=== PATIENT | female | born 1985 | race Caucasian/White ===

== ENCOUNTER 2022-04-13 07:40 | Inpatient (IN) | payer OTHER ==
[2022-04-13] MEDS ORDERED: ELECTROLYTE-148 SOLN 1,000 ML IV SCH (08:15)
[2022-04-13] MEDS ORDERED: CITRIC ACID/SODIUM CITRATE 30 ML UNIT-DOSE CUP PO ONE (08:15)
[2022-04-13] MEDS ORDERED: morphine SULFATE/PF 1 MG/2 ML (2cc Syringe - QUVA) ONE (08:29)
[2022-04-13] MEDS ORDERED: morphine SULFATE/PF 1 MG/2 ML (2cc Syringe - QUVA) SPIN ONE (09:07)
[2022-04-13] MEDS ORDERED: ceFAZolin SODIUM 1 GM VIAL ONE ×2 (09:23)
[2022-04-13] MEDS ORDERED: ONDANSETRON 4 MG/2 ML VIAL ONE (09:23)
[2022-04-13] MEDS ORDERED: DEXAMETHASONE SOD PHOSPHATE 4 MG/1 ML VIAL ONE (09:23)
[2022-04-13] MEDS ORDERED: BENZOCAINE 28 GM HEMORRHOIDAL OINTMENT TP PRN (09:45)
[2022-04-13] MEDS ORDERED: ACETAMINOPHEN 325 MG TABLET (FP) PO PRN (09:45)
[2022-04-13] MEDS ORDERED: IBUPROFEN 800 MG/8 ML IJ IVPB PRN (09:45)
[2022-04-13] MEDS ORDERED: METHYLERGONOVINE MALEATE 0.2 MG/1 ML AMP IM PRN (09:45)
[2022-04-13] MEDS ORDERED: ONDANSETRON 4 MG/2 ML VIAL IVPUSH PRN (09:58)
[2022-04-13 10:22] VITALS: BMI 32.6
[2022-04-13] MEDS ORDERED: OXYTOCIN 20 UNITS in 0.9% NS 20 UNIT/1,000 ML INFUS.BAG IV ONE (11:54)
[2022-04-13] MEDS: OXYTOCIN 20 UNITS in 0.9% NS 20 UNIT/1,000 ML INFUS.BAG IV SCH ×2 (12:00→21:52)
[2022-04-13] MEDS: FERROUS SO4 325 MG TABLET (FP) PO SCH ×2 (12:07→21:49)
[2022-04-13] MEDS: PRENATAL VITAMINS W/ FOLIC ACID TABLET (FP) PO SCH (12:08)
[2022-04-13] MEDS ORDERED: oxyCODONE HCL 5 MG TABLET PO PRN (21:45)
[2022-04-13] MEDS: SIMETHICONE 80 MG TAB.CHEW (FP) PO PRN (21:49)
[2022-04-14] MEDS: SIMETHICONE 80 MG TAB.CHEW (FP) PO PRN ×2 (05:21→21:42)
[2022-04-14] MEDS: IBUPROFEN 600 MG TABLET (FP) PO PRN ×2 (05:21→14:49)
[2022-04-14 09:42] LABS: BASO % 0.3 % (0-2.0); EOS % 0.9 % (0-4.5); HEMATOCRIT 33.3 % (32.4-45.2); HEMOGLOBIN 11.5 GM/dL (10.7-15.3); LYMPH % 23.6 % (8-40); MCH 29.6 pg (25.7-33.7); MCHC 34.6 g/dl (32.0-36.0); MEAN CELL VOLUME 85.6 fl (80-96); MEAN PLT VOLUME 9.1 fl (7.5-11.1); MONO % 7.7 % (3.8-10.2); NEUT % 67.5 % (42.8-82.8); PLATELET COUNT 221 10^3/uL (134-434); RBC 3.89 M/mm3 (3.60-5.2); RDW 15.1 % (11.6-15.6); WHITE BLOOD COUNT 9.9 K/mm3 (4.0-10.0)
[2022-04-14] MEDS: FERROUS SO4 325 MG TABLET (FP) PO SCH ×2 (09:42→21:43)
[2022-04-14] MEDS: PRENATAL VITAMINS W/ FOLIC ACID TABLET (FP) PO SCH (09:42)
[2022-04-14] MEDS ORDERED: BISACODYL 10 MG SUPP.RECT RC PRN (09:45)
[2022-04-15] MEDS: SIMETHICONE 80 MG TAB.CHEW (FP) PO PRN ×3 (06:08→21:06)
[2022-04-15] MEDS: IBUPROFEN 600 MG TABLET (FP) PO PRN ×3 (06:08→21:06)
[2022-04-15] MEDS: PRENATAL VITAMINS W/ FOLIC ACID TABLET (FP) PO SCH (09:45)
[2022-04-15] MEDS: FERROUS SO4 325 MG TABLET (FP) PO SCH ×2 (09:45→21:06)
[2022-04-15 11:37] VITALS: RESP 18
[2022-04-15 22:17] VITALS: TEMP 98.1
[2022-04-16 09:17] LABS: BASO % 0.4 % (0-2.0); EOS % 4.2 % (0-4.5); LYMPH % 20.3 % (8-40); MCH 29.5 pg (25.7-33.7); MCHC 34.3 g/dl (32.0-36.0); MEAN CELL VOLUME 85.9 fl (80-96); MONO % 6.1 % (3.8-10.2); PLATELET COUNT 241 10^3/uL (134-434); RBC 3.73 M/mm3 (3.60-5.2); RDW 15.3 % (11.6-15.6); WHITE BLOOD COUNT 6.9 K/mm3 (4.0-10.0)
[2022-04-16] MEDS: IBUPROFEN 600 MG TABLET (FP) PO PRN (10:00)
[2022-04-16] MEDS: SIMETHICONE 80 MG TAB.CHEW (FP) PO PRN (10:01)
[2022-04-16] MEDS: PRENATAL VITAMINS W/ FOLIC ACID TABLET (FP) PO SCH (10:01)
[2022-04-16] MEDS: FERROUS SO4 325 MG TABLET (FP) PO SCH (10:01)
[2022-04-16 11:32] VITALS: BP 107/60; PULSE 75
== END 2022-04-16 13:10 | disposition home or self-care (01) | DRG 540 ==
LOC: JLDR 07:40 → J3W 11:55
PROVIDERS: ADMIT Obstetrics & Gynecology; ATTEND Obstetrics & Gynecology
PROC: 10D00Z1 Extraction of Products of Conception, Low, Open Approach (ICD-10-PCS; principal; 2022-04-13)
DX: O34.211 Maternal care for low transverse scar from previous cesarean delivery (principal); Z3A.39 39 weeks gestation of pregnancy; Z37.0 Single live birth; O99.214 Obesity complicating childbirth; E66.9 Obesity, unspecified
CPT/HCPCS: 36415; 80053; 85025; 85610; 86780; 86850; 86900; 86901; 88307-TC; C9803-CS; U0003; U0005

== ENCOUNTER 2024-03-12 09:50 | Inpatient (IN) | payer OTHER ==
[2024-03-12] MEDS: LACTATED RINGERS SOLUTION 1,000 ML IV ONE (10:30)
[2024-03-12 11:43] VITALS: BMI 32.5
[2024-03-12 12:03] LABS: BASO % 0.6 % (0-2.0); EOS % 1.5 % (0-4.5); HEMATOCRIT 36.9 % (32.4-45.2); HEMOGLOBIN 12.8 GM/dL (10.7-15.3); LYMPH % 21.5 % (8-40); MCH 30.1 pg (25.7-33.7); MCHC 34.7 g/dl (32.0-36.0); MEAN CELL VOLUME 86.5 fl (80-96); MEAN PLT VOLUME 10.2 fl (7.5-11.1); MONO % 6.3 % (3.8-10.2); NEUT % 70.1 % (42.8-82.8); PLATELET COUNT 202 10^3/uL (134-434); RBC 4.27 M/mm3 (3.60-5.2); RDW 15.2 % (11.6-15.6); WHITE BLOOD COUNT 8.4 K/mm3 (4.0-10.0)
[2024-03-12 12:11] LABS: INR 0.87 (0.83-1.09)
[2024-03-12] MEDS ORDERED: METOCLOPRAMIDE HCL INJECTION 10 MG/2 ML VIAL ONE (12:12)
[2024-03-12] MEDS ORDERED: PHENYLEPHRINE HCL 10 MG/1 ML SINGLE DOSE VIAL ONE (12:12)
[2024-03-12] MEDS ORDERED: morphine SULFATE/PF 1 MG/2 ML (2cc Syringe - QUVA) ONE (12:12)
[2024-03-12] MEDS ORDERED: ONDANSETRON 4 MG/2 ML VIAL ONE (12:12)
[2024-03-12] MEDS ORDERED: FENTANYL CITRATE/PF 50 MCG/ML VIAL ONE (12:12)
[2024-03-12] MEDS ORDERED: ceFAZolin SODIUM 1 GM VIAL ONE (12:12)
[2024-03-12 12:14] LABS: ACTIVATED PTT 28.9 SECONDS (25.2-36.5)
[2024-03-12 12:29] LABS: POTASSIUM 3.9 mmol/L (3.5-5.1)
[2024-03-12] MEDS: ELECTROLYTE-148 SOLN 1,000 ML IV SCH (12:30)
[2024-03-12 12:31] LABS: BLOOD UREA NITROGEN 13.4 mg/dL (7-18); CALCIUM 8.9 mg/dL (8.5-10.1)
[2024-03-12 12:35] LABS: CREATININE 0.4 mg/dL (0.55-1.3)
[2024-03-12] MEDS ORDERED: OXYTOCIN 30 UNITS in 0.9% NS 30 UNIT/500 ML INFUS.BAG IVPB ONE (12:36)
[2024-03-12] MEDS: CITRIC ACID/SODIUM CITRATE 30 ML UNIT-DOSE CUP PO ONE (12:45)
[2024-03-12 13:41] LABS: CORD BASE EXCESS -2.4 mmol/L (0-2); CORD HCO3 24.6 mmHg (20-29); CORD PCO2 49.9 mmHg (30-78); CORD pH 7.31 (7.14-7.44)
[2024-03-12 13:43] LABS: CORD HCO3 25.1 mmHg (20-29); CORD PCO2 53.2 mmHg (30-78); CORD pH 7.292 (7.14-7.44)
[2024-03-12] MEDS ORDERED: KETOROLAC TROMETHAMINE 30 MG/1 ML VIAL ONE (13:48)
[2024-03-12] MEDS: OXYTOCIN 20 UNITS in 0.9% NS 20 UNIT/1,000 ML INFUS.BAG IV SCH (14:00)
[2024-03-12] MEDS ORDERED: OXYTOCIN 20 UNITS in 0.9% NS 20 UNIT/1,000 ML INFUS.BAG IV ONE (14:03)
[2024-03-12] MEDS ORDERED: ONDANSETRON 4 MG/2 ML VIAL IVPUSH PRN (14:17)
[2024-03-12] MEDS ORDERED: METHYLERGONOVINE MALEATE 0.2 MG/1 ML AMP IM PRN (14:29)
[2024-03-12] MEDS: morphine SULFATE/PF 1 MG/2 ML (2cc Syringe - QUVA) IT ONE (15:32)
[2024-03-12] MEDS ORDERED: ACETAMINOPHEN INJECTION 100 ML ONE (16:05)
[2024-03-12] MEDS: ACETAMINOPHEN 1000 MG/100 ML BAG IVPB PRN (16:10)
[2024-03-12] MEDS: CEFAZOLIN SODIUM 2 GM in DEXTROSE 5%-WATER 100 ML IVPB SCH ×2 (16:40→16:41)
[2024-03-12] MEDS: SIMETHICONE 80 MG TAB.CHEW (FP) PO PRN (19:25)
[2024-03-12] MEDS: IBUPROFEN 600 MG TABLET (FP) PO PRN (19:25)
[2024-03-13] MEDS ORDERED: oxyCODONE HCL 5 MG TABLET PO PRN ×2 (02:29)
[2024-03-13 08:57] LABS: BASO % 0.5 % (0-2.0); EOS % 1.4 % (0-4.5); HEMATOCRIT 35.8 % (32.4-45.2); HEMOGLOBIN 11.9 GM/dL (10.7-15.3); LYMPH % 15.8 % (8-40); MCH 29.1 pg (25.7-33.7); MCHC 33.3 g/dl (32.0-36.0); MEAN CELL VOLUME 87.3 fl (80-96); MEAN PLT VOLUME 10.1 fl (7.5-11.1); MONO % 7.6 % (3.8-10.2); NEUT % 74.7 % (42.8-82.8); PLATELET COUNT 161 10^3/uL (134-434); RDW 15.2 % (11.6-15.6); WHITE BLOOD COUNT 7.7 K/mm3 (4.0-10.0)
[2024-03-13] MEDS: ENOXAPARIN NA (PORCINE) 40 MG/0.4 ML DISP.SYRIN SQ SCH (11:31)
[2024-03-13] MEDS: ACETAMINOPHEN 325 MG TABLET (FP) PO PRN (13:22)
[2024-03-13 23:28] VITALS: RESP 18
[2024-03-14] MEDS: BISACODYL 10 MG SUPP.RECT RC PRN (11:26)
[2024-03-15 08:33] LABS: BASO % 0.4 % (0-2.0); EOS % 3.9 % (0-4.5); HEMATOCRIT 31.5 % (32.4-45.2); LYMPH % 16.4 % (8-40); MCH 29.8 pg (25.7-33.7); MCHC 34.9 g/dl (32.0-36.0); MEAN CELL VOLUME 85.5 fl (80-96); MEAN PLT VOLUME 9.5 fl (7.5-11.1); MONO % 6.2 % (3.8-10.2); NEUT % 73.1 % (42.8-82.8); PLATELET COUNT 209 10^3/uL (134-434); RBC 3.68 M/mm3 (3.60-5.2); RDW 14.7 % (11.6-15.6); WHITE BLOOD COUNT 7.6 K/mm3 (4.0-10.0)
[2024-03-15 10:08] VITALS: BP 122/75; PULSE 69; TEMP 98.6
== END 2024-03-15 14:30 | disposition home or self-care (01) | DRG 540 ==
LOC: JDEL 09:50 → JLDR 10:50 → J3W 16:54
PROVIDERS: ADMIT Obstetrics & Gynecology; ATTEND Obstetrics & Gynecology
PROC: 10D00Z1 Extraction of Products of Conception, Low, Open Approach (ICD-10-PCS; principal; 2024-03-12)
PROC: 0DNW0ZZ Release Peritoneum, Open Approach (ICD-10-PCS; 2024-03-12)
DX: O34.211 Maternal care for low transverse scar from previous cesarean delivery (principal); O99.62 Diseases of the digestive system complicating childbirth; K66.0 Peritoneal adhesions (postprocedural) (postinfection); Z3A.39 39 weeks gestation of pregnancy; Z37.0 Single live birth
CPT/HCPCS: 36415; 36600; 59025; 59409; 80048; 82803; 85025; 85610; 85730; 86780; 86850; 86900; 86901; 88307-TC; 94010; J0131